=== PATIENT | female | born 1960 | race Caucasian/White ===

== ENCOUNTER 2025-04-06 11:00 | Outpatient (CLI) | payer OTHER | END 2025-04-06 11:01 | disposition home or self-care (01) | LOC: BURRAD 11:00 | PROVIDERS: ATTEND Nurse Practitioner Family | DX: M54.42 Lumbago with sciatica, left side (principal); M47.816 Spondylosis without myelopathy or radiculopathy, lumbar region | CPT/HCPCS: 72100 ==